=== PATIENT | female | born 2000 | race Caucasian/White ===

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

== ENCOUNTER 2024-03-28 03:08 | Emergency (ER) | payer BC, OTHER ==
[~2024-03-28] VITALS: Ht 175.3 cm; Wt 84.0 kg
[2024-03-28 03:17] VITALS: TEMP 98.2
[2024-03-28 03:39] LABS: BASOPHILS % (AUTO) 0.3 % (0-1); EOSINOPHILS # (AUTO) 0.1 X10'3 (0-0.9); EOSINOPHILS % (AUTO) 0.9 % (0-6); HEMATOCRIT 34.6 % (35.0-45.0); HEMOGLOBIN 11.3 g/dl (12.0-16.0); LYMPHOCYTES # (AUTO) 3.6 X10'3 (1.1-4.8); LYMPHOCYTES % (AUTO) 48.4 % (21-51); MEAN CORPUSCULAR HEMOGLOBIN 27.7 PG (27.0-31.0); MEAN CORPUSCULAR HGB CONC 32.7 g/dL (33.0-36.5); MEAN CORPUSCULAR VOLUME 84.7 FL (78-98); MEAN PLATELET VOLUME 7.7 FL (7.4-10.4); MONOCYTES # (AUTO) 0.5 X10'3 (0-0.9); MONOCYTES % (AUTO) 6.4 % (2-12); NEUTROPHILS # (AUTO) 3.3 X10'3 (1.8-7.7); PLATELET COUNT 292 X10'3 (140-440); RED BLOOD COUNT 4.09 X10'6 (4.20-5.60); RED CELL DISTRIBUTION WIDTH 16.6 % (11.5-14.5); WHITE BLOOD COUNT 7.5 X10'3 (4.5-11.0)
[2024-03-28] MEDS: ondansetron 4mg rapidly disintigrating tab PO ONE (03:40)
[2024-03-28 03:49] LABS: ALBUMIN 3.8 G/DL (3.4-5.0); ANION GAP 11 (8-16); BLOOD UREA NITROGEN 16 MG/DL (7-18); BUN/CREATININE RATIO 22.9 (10.0-20.0); CHLORIDE 103 MMOL/L (99-107); GLUCOSE 241 MG/DL (70-104); LIPASE 42 U/L (16-77); SODIUM 139 MMOL/L (135-145); TOTAL CARBON DIOXIDE 25.2 MMOL/L (24-32); eCRCL 130 ML/MIN; eGFR > 90 ML/MIN
[2024-03-28 03:52] LABS: POTASSIUM 4.1 MMOL/L (3.5-5.1)
[2024-03-28] MEDS ORDERED: ketorolac trometh. 30mg/ml inj. IV ONE (04:05)
[2024-03-28 04:12] LABS: BILIRUBIN,URINE NEGATIVE (Neg); CLARITY,URINE SLIGHTLY CLOUDY (Clear); COLOR,URINE YELLOW (Yellow); GLUCOSE, URINE >=1000 mg/dl (Neg); KETONES,URINE NEGATIVE (Neg); LEUKOCYTE ESTERASE ,URINE NEGATIVE (Neg); NITRITES, URINE NEGATIVE (Neg); OCCULT BLOOD,URINE LARGE (Neg); PROTEIN,URINE NEGATIVE (Neg); UROBILINOGEN,URINE 0.2 E.U/dL (0.2-1.0)
[2024-03-28 04:13] LABS: UA COLLECTION TYPE CLN CATCH MIDSTREAM; URINE HCG NEGATIVE (NEG)
[2024-03-28] MEDS: dicyclomine 10 MG capsule PO ONE (04:19)
[2024-03-28] MEDS: ketorolac tromethamine 15mg/ml inj. IV ONE (04:19)
[2024-03-28 04:23] LABS: WBC,URINE 0-4 /HPF (0-4)
[2024-03-28 04:24] LABS: BACTERIA,URINE FEW /HPF (Neg); RBC,URINE TNTC /HPF (0-2); RENAL CELLS, URINE FEW /HPF; SQUAMOUS EPITHELIAL CELL,UR FEW /LPF (FEW); TRANSITIONAL EPI CELLS,URINE FEW /HPF
[2024-03-28 04:29] LABS: URINE AMPHETAMINE SCREEN NEGATIVE (Neg); URINE BARBITUATE SCREEN NEGATIVE (Neg); URINE BENZODIAZEPINES SCREEN NEGATIVE (Neg); URINE CANNABINOID SCREEN POSITIVE (Neg); URINE COCAINE SCREEN NEGATIVE (Neg); URINE METHADONE SCREEN NEGATIVE (Neg); URINE OPIATE SCREEN NEGATIVE (Neg); URINE PHENCYCLIDINE SCREEN NEGATIVE (Neg)
[2024-03-28 04:30] VITALS: BP 108/66; PULSE 63; RESP 15; O2SAT 100
[2024-03-28] MEDS ORDERED: DICY20TA17 PO (04:38)
== END 2024-03-28 05:11 | disposition home or self-care (01) ==
LOC: ER 03:10
DX: N93.8 Other specified abnormal uterine and vaginal bleeding (principal); E11.9 Type 2 diabetes mellitus without complications; Z88.8 Allergy status to other drugs, medicaments and biological substances
CPT/HCPCS: 36415; 80048; 80305; 81001; 81025; 82948; 83690; 84145; 85025; 96374; 99284; J1885

== ENCOUNTER 2024-04-21 13:21 | Emergency (ER) | payer BC ==
[~2024-04-21 13:21] MED LIST: DICY20TA17 PO
[2024-04-22] MEDS ORDERED: ONDA-243 PO (02:12)
== END 2024-04-21 14:14 | disposition left against medical advice (07) ==
LOC: ER 13:22
DX: R11.2 Nausea with vomiting, unspecified (principal); Z53.21 Procedure and treatment not carried out due to patient leaving prior to being seen by health care provider